=== PATIENT | male | born 1960 | race Caucasian/White ===

== ENCOUNTER 2018-05-01 08:35 | Observation (INO) | payer BC ==
[~2018-05-01] VITALS: Ht 185.4 cm; Wt 124.5 kg
[~2018-05-01 08:35] MED LIST: BACTRIM,SEPT1 TABLET PO; CIALIS5 MG PO; CLEOCIN300 MG PO; CLINDAMYCIN HC300 MG PO; KEFLEX500 MG PO; PROBIOTIC ACID1 EACH PO
[2018-05-01 09:04] LABS: HEMATOCRIT 41.4 % (38.0-50.0); HEMOGLOBIN 14.6 G/DL (12.5-16.6); MCH 33.6 PG (29.0-34.0); MCHC 35.3 G/DL (30.0-36.0); MCV 95.4 FL (86-99); PLATELET COUNT 189 K/uL (156-360); RBC DIS.WIDTH-CV 11.5 % (11.8-14.6); RED BLOOD COUNT 4.34 M/uL (4.00-5.50); WHITE BLOOD COUNT 4.6 K/uL (4.1-10.2)
[2018-05-01 09:24] LABS: TROP-I INTERPRETATION NEGATIVE; TROPONIN-I 0.06 ng/mL (0.0-0.30)
[2018-05-01 09:39] LABS: ALKALINE PHOSPHATASE 39 IU/L (3-129); ALT (GPT) 10 IU/L (3-49); AST (GOT) 13 IU/L (2-34); CHLORIDE 107 MEQ/L (99-109); CREATININE 1.1 MG/DL (0.6-1.3); DIRECT BILIRUBIN 0.1 mg/dL (0.0-0.3); GFR ESTIMATE (CALCULATED) > 59 mL/min/ (58.99-99999); GLUCOSE 99 mg/dL (70-99); LIPASE 59 U/L (1.0-51.0); POTASSIUM 4.8 MEQ/L (3.7-5.4); SODIUM 140 MEQ/L (136-147); TOTAL BILIRUBIN 0.6 MG/DL (0.0-1.0); TOTAL PROTEIN 6.8 G/DL (6.4-8.3); UREA NITROGEN (BUN) 12 mg/dL (9-23)
[2018-05-01] MEDS ORDERED: PRINIVIL20 MG PO (10:45)
[2018-05-01] MEDS ORDERED: NIZORAL 2% CREA15 GM TP (10:56)
[2018-05-01] MEDS ORDERED: BETAMETHASONE V15 GM TP (10:57)
[2018-05-01 11:30] LABS: APPEARANCE CLEAR ((CLEAR)); BILIRUBIN NEGATIVE; BLOOD NEGATIVE; COLOR YELLOW ((YELLOW)); GLUCOSE (STRIP) NEGATIVE; KETONES NEGATIVE; LEUKOCYTES NEGATIVE; NITRITE NEGATIVE; PROTEIN (STRIP) NEGATIVE; SPECIFIC GRAVITY 1.016 (1.000-1.030); UCUL ADDED? NO; UROBILINOGEN 0.2 MG/DL (0.2-1.0)
[2018-05-01 11:33] LABS: HDL CHOLESTEROL 60 MG/DL (Desirable>=40); LDL CHOLESTEROL 122 mg/dL (Desirable<100); NON-HDL CHOLESTEROL 130 mg/dL (Desirable<160); TOTAL CHOLESTEROL 190 mg/dL (Desirable<200); TRIGLYCERIDES 38 MG/DL (Normal: <150)
[2018-05-01 12:40] VITALS: BP 141/90
[2018-05-01 15:22] VITALS: BP 137/78
[2018-05-01 15:51] LABS: TROP-I INTERPRETATION POSITIVE; TROPONIN-I 0.97 ng/mL (0.0-0.30)
[2018-05-01 17:05] LABS: PTT 29.4 SEC (25-37)
[2018-05-01 20:25] VITALS: BP 119/85
[2018-05-01 22:51] LABS: TROP-I INTERPRETATION INDETERMINATE; TROPONIN-I 0.46 ng/mL (0.0-0.30)
[2018-05-02 00:14] VITALS: BP 134/78
[2018-05-02 07:41] VITALS: BP 152/91
[2018-05-02] MEDS ORDERED: AMLODIPINE BESYL5 MG PO (12:58)
[2018-05-02] MEDS ORDERED: ATORVASTATIN CA80 MG PO (12:58)
[2018-05-02] MEDS ORDERED: LOPRESSOR25 MG PO (12:58)
[2018-05-02] MEDS ORDERED: ASPIR-LOW81 MG PO (12:59)
[2018-05-02 14:32] VITALS: BP 139/89
== END 2018-05-02 15:43 | disposition home or self-care (01) ==
LOC: EME 08:35 → EDOF 10:29 → 4SOUTH 10:29 → EDOF 10:29 → ENRESERV 10:32 → 4SOUTH 11:56
PROVIDERS: Emergency Medicine; Internal Medicine; Internal Medicine Cardiovascular Disease
DX: I21.4 Non-ST elevation (NSTEMI) myocardial infarction (principal); I25.10 Atherosclerotic heart disease of native coronary artery without angina pectoris; F10.20 Alcohol dependence, uncomplicated; I10 Essential (primary) hypertension; Z85.47 Personal history of malignant neoplasm of testis; Z87.820 Personal history of traumatic brain injury; Z90.49 Acquired absence of other specified parts of digestive tract; Z82.0 Family history of epilepsy and other diseases of the nervous system; Z79.82 Long term (current) use of aspirin
CPT/HCPCS: 71045; 80048; 80061; 80076; 81003; 83690; 83735; 84484; 85027; 85347; 85610; 85730; 93005; 99281; 99285; C1769; C1887; G0378; J0461; J1644; J1650; J2250; J3010; J7040